=== PATIENT | female | born 1965 | race Caucasian/White ===

== ENCOUNTER 2023-01-18 22:14 | Emergency (ER) | payer SELFPAY ==
[2023-01-18] MEDS ORDERED: Insulin Regular 300 UNITS/3 ML VIAL ONE (23:00)
[2023-01-18] MEDS ORDERED: Ondansetron PF 4 MG/2 ML Vial ONE (23:01)
[2023-01-18 23:15] LABS: Hemoglobin 14.8 g/dL (12.0-16.0); Mean Corpuscular HGB CONC 34.9 g/dL (32.0-36.0); Mean Corpuscular Hemoglobin 31.3 pg (27.0-31.0); Mean Corpuscular Volume 89.6 fl (78.0-98.0); Platelet Count 250 10x3/uL (130-400); RBC Distribution Width 12.8 % (11.5-14.5); Red Blood Cell (RBC) Count 4.72 mill/uL (4.20-5.40); White Blood Cell (WBC) Count 9.3 10x3/uL (4.8-10.8)
[2023-01-18 23:18] LABS: Lymphocytes 8 % (21-51); MDiff Complete? YES; Monocytes 6 % (0-10); Neutrophil 81 % (42-75)
[2023-01-18 23:21] LABS: ALT (SGPT) 20 U/L (8-55); AST (SGOT) 13 U/L (5-34); Albumin 4.5 g/dL (3.5-5.0); Alkaline Phosphatase 79 U/L (40-110); Anion Gap 17 mmol/L (10-20); BUN (Urea Nitrogen) 19 mg/dL (9.8-20.1); Base Excess-Venous -1.1 mmol/L (-2.0 to 3.0); Bicarbonate (HCO3v) 23.7 mmol/L (22.0-28.0); Bilirubin, Total 0.3 mg/dL (0.2-1.2); CO2 Tension (PvCO2) 39.2 mmHg (42.0-51.0); Calc. Creatinine Clearance 0 mL/min (70-130); Calcium 10.4 mg/dL (7.8-10.44); Calcium, Ionized 1.23 mmol/L (1.15-1.33); Carbon Dioxide 22 mmol/L (22-29); Chloride 104 mmol/L (98-107); Chloride 105 mmol/L (98-107); Estimated GFR 53; Globulin 3.1 g/dL (2.4-3.5); Hemoglobin - Calc 15.6 g/dL (12.0-16.0); Potassium 4.2 mmol/L (3.5-5.1); Protein, Total 7.6 g/dL (6.0-8.3); Sodium 139 mmol/L (136-145); Sodium 139 mmol/L (138-145); T. Carbon Dioxide 24.9 mmol/L (22.0-28.0)
[2023-01-18 23:40] LABS: Glucose 479 mg/dL (70-105)
[2023-01-19] MEDS ORDERED: Metoclopramide HCl 10 MG/2 ML VIAL ONE (00:22)
[2023-01-19] MEDS ORDERED: Ketorolac Tromethamine 30 MG/ML VIAL ONE (00:22)
[2023-01-19] MEDS ORDERED: diphenhydrAMINE 50 MG/ML VIAL ONE (00:23)
[2023-01-19 01:01] LABS: Bilirubin Negative (Negative); Blood, Urine Negative (Negative); Clarity Clear (Clear); Glucose, Urine (Dipstick) 500 mg/dL (Negative); Ketone, Urine Negative (Negative); Leukocyte Negative (Negative); Nitrite Negative (Negative); Protein, Urine (Dipstick) Negative (Neg-Trace); Urobilinogen 0.2 mg/dL (Less than 2); pH, Urine 5.5 (5.0-9.0)
== END 2023-01-19 01:28 | disposition home or self-care (01) ==
LOC: BURERS 22:14
DX: E11.65 Type 2 diabetes mellitus with hyperglycemia (principal); R51.9 Headache, unspecified; E11.9 Type 2 diabetes mellitus without complications; E78.5 Hyperlipidemia, unspecified; E03.9 Hypothyroidism, unspecified; I10 Essential (primary) hypertension; J43.9 Emphysema, unspecified; Z79.4 Long term (current) use of insulin
CPT/HCPCS: 36416; 80053; 81003; 82010; 82330; 82803; 84484; 85025; 96361; 96365; 96366; 96375; J1200; J1815; J1885; J2405; J2765

== ENCOUNTER 2024-06-10 09:35 | Outpatient (CLI) | payer OTHER | END 2024-06-10 09:36 | disposition home or self-care (01) | LOC: BURRAD 09:35 | PROVIDERS: ATTEND Nurse Practitioner Family | DX: S29.9XXA Unspecified injury of thorax, initial encounter (principal); R22.1 Localized swelling, mass and lump, neck | CPT/HCPCS: 71046 ==